=== PATIENT | female | born 1955 | race Caucasian/White ===

== ENCOUNTER 2018-10-14 05:38 | Inpatient (IN) | payer OTHER ==
[~2018-10-14] VITALS: Ht 157.5 cm; Wt 83.9 kg
[2018-10-14] VITALS (13 sets, daily range): BP systolic 94–129; BP diastolic 50–75
[~2018-10-14 05:38] MED LIST: NKM
[2018-10-14] MEDS ORDERED: Propofol 1,000mg/ 100ml btl IV ONE ×2 (07:00)
[2018-10-14] MEDS ORDERED: fentaNYL 100 mcg/2 mL IV ONE ×2 (07:01→08:28)
[2018-10-14] MEDS ORDERED: Midazolam 2mg/2ml Inj ONE (07:01)
[2018-10-14] MEDS ORDERED: Lidocaine 1% MPF 10mg/ml 5ml ONE (07:03)
[2018-10-14] MEDS ORDERED: Succinylcholine 20mg/ml 10ml vial ONE (07:07)
[2018-10-14] MEDS ORDERED: Zemuron 50mg/5ml Inj IV ONE ×2 (07:07→10:09)
[2018-10-14] MEDS ORDERED: Bupivacaine w/Epi 0.5% 30ml Vial INJ ONE (07:08)
[2018-10-14] MEDS ORDERED: Thrombin 5000 units TOPIC ONE ×4 (07:08→09:47)
[2018-10-14] MEDS ORDERED: Gelfoam Size TOPIC ONE (07:08)
[2018-10-14] MEDS ORDERED: Bacitracin 50000 Units Vial ONE (07:09)
[2018-10-14] MEDS ORDERED: Heparin 5000 units/ml inj ONE (07:24)
--- NOTE | 2018-10-14 07:27 | Pre-Procedure Note/Attestation ---
Pre-Procedure Note/Attestation Complete Prior to Procedure Planned Procedure: not applicable Procedure Narrative: L4-5, L3-4 ALIF and possible post instrumentation Indications for Procedure Pre-Operative Diagnosis: L4-5 antlsth, L3-4 collapse Attestation I attest that I discussed the nature of the procedure; its benefits; risks and complications; and alternatives (and the risks and benefits of such alternatives ), prior to the procedure, with the patient (or the patient's legal mechanical service representative). I attest that, if there was a reasonable possibility of needing a blood transfusion, the patient (or the patient's legal mechanical service representative) was given the [facility] standardized written summary, pursuant to the Hiram Erika Blood Safety Act ([place] Health and Safety Code # 1645, as amended). I attest that I re-evaluated the patient just prior to the surgery and that there has been no change in the patient's H&P, except as documented below: GRADY LILLY Oct 14, 2018 07:27
[2018-10-14] MEDS ORDERED: Sterile Water For Irrig 2000ml IRRIG ONE (07:30)
[2018-10-14] MEDS ORDERED: LR 1000ml ONE (07:30)
[2018-10-14] MEDS ORDERED: NS Irrig 1000ml ONE (07:30)
[2018-10-14] MEDS ORDERED: Phenylephrine 10mg/ml Vial ONE (08:50)
[2018-10-14] MEDS ORDERED: NS Irrig 1000ml IRRIG ONE (09:04)
--- NOTE | 2018-10-14 09:22 | Anethesia Preoperative Eval ---
Anesthesia Pre-op PMH/ROS General Date of Evaluation: Oct 14, 2018 Time of Evaluation: 07:20 Anesthesiologist: Luis Antonio ASA Score: ASA 2 Mallampati Score Class I : Soft palate, uvula, fauces, pillars visible Class II: Soft palate, uvula, fauces visible Class III: Soft palate, base of uvula visible Class IV: Only hard plate visible Mallampati Classification: Class II Surgeon: Saad Diagnosis: Lumbar radiculopathy Surgical Procedure: ALIFT L3-L4-L5 Posterior percutaneous interbody fusion Anesthesia History: none Family History: no anesthesia problems Allergies: Coded Allergies: SULFA (SULFONAMIDE ANTIBIOTICS) (Verified Allergy, Severe, 10/13/18) hives GLUTEN (Verified Adverse Reaction, Intermediate, 10/14/18) bloating, stomach ache Patient NPO?: Yes NPO Date: Oct 13, 2018 NPO Time: 1999 Past Medical History Cardiovascular: Denies: HTN, CAD, IA, valve dz, arrhythmia, other Pulmonary: Denies: asthma, COPD, COBY, other Gastrointestinal/Genitourinary: Reports: GERD Neurologic/Psychiatric: Reports: depression/anxiety, other - chronic pain; Denies: dementia, CVA, TIA Endocrine: Denies: DM, hypothyroidism, steroids, other HEENT: Denies: cataract (L), cataract (R), glaucoma, [place] (L), [place] (R), other Hematology/Immune: Denies: anemia, DVT, bleeding disorder, other Musculoskeletal/Integumentary: Denies: OA, RA, DJD, DDD, edema, other Other: obesity PMH Narrative: as above PSxH Narrative: Salpingectomy for ectopic , neck gygroma ORIF knee Anesthesia Pre-op Phys. Exam Physician Exam Last Vital Signs Date Time Temp Pulse Resp B/P (MAP) Pulse Ox O2 Delivery O2 Flow Rate FiO2 10/14/18 06:22 Room Air 10/14/18 06:22 98.7 78 18 122/75 (91) 97 Constitutional: NAD Neurologic: CN 2-12 intact Cardiovascular: RRR, no M/R/G Respiratory: CTA Gastrointestinal: other - obesity Airway Exam Mallampati Score: Class II MO: limited Neck: short ROM: limited Teeth: intact Dentures: no upper, no lower Anesthesia Pre-op A/P Labs see chart Studies Pre-op Studies: EKG - NSR, echo - EF 60% Risk Assessment & Plan Assessment: ASA 2 Plan: GA with ETT neuromonitoring Status Change Before Surgery: No Pre-Antibiotics Drug: Ancef 1gr. Given Within 1 Hr of Incision: Yes Time Given: 08:20 Darrell Salmon MD Oct 14, 2018 09:22
[2018-10-14] MEDS ORDERED: Morphine Sulfate 10mg/ml Inj ONE (10:53)
[2018-10-14] MEDS ORDERED: Glycopyrrolate 0.2mg/ml 1ml Vial ONE (10:54)
[2018-10-14] MEDS ORDERED: Neostigmine 1mg/ml 10ml Inj ONE (10:54)
[2018-10-14] MEDS ORDERED: LR 1000ml 1,000 ML IVLG SCH (11:04)
[2018-10-14] MEDS ORDERED: DiphenhydrAMINE 50mg/ml Inj IVP PRN (11:15)
[2018-10-14] MEDS ORDERED: Hydromorphone 0.5mg/0.5ml inj IVP PRN (11:15)
[2018-10-14] MEDS ORDERED: Ketorolac 30mg Inj IV PRN (11:15)
[2018-10-14] MEDS ORDERED: Midazolam 2mg/2ml Inj IVP PRN (11:15)
[2018-10-14] MEDS ORDERED: Meperidine 50mg/ml Inj(FOR RIGORS ONLY) IV PRN (11:15)
--- NOTE | 2018-10-14 11:54 | Immediate Post-Op Evaluation ---
Immediate Post-Op Evalulation Immediate Post-Op Evalulation Procedure: ALIF L3-L4-L5 Date of Evaluation: Oct 14, 2018 Time of Evaluation: 11:53 IV Fluids: 1200 Blood Products: Albumin 250 Estimated Blood Loss: 100 Urinary Output: 150 Blood Pressure Systolic: 108 Blood Pressure Diastolic: 62 Pulse Rate: 76 Respiratory Rate: 20 O2 Sat by Pulse Oximetry: 99 Temperature (Fahrenheit): 97.7 Pain Score (1-10): 2 Nausea: No Vomiting: No Complications none Patient Status: reacts, patent, extubated, none Hydration Status: adequate Darrell Salmon MD Oct 14, 2018 11:54
--- NOTE | 2018-10-14 12:00 | Brief Operative Note ---
Immediate Post Operative Note Operative Note Chief Complaint: low back pain Pre-op Diagnosis: L4-5 antlsth, L3-4 collapse Procedure: L3-4-5 ALIF Post-op Diagnosis: same as pre-op Findings: consistent w/pre-op dx studies Surgeon: Shawna Nash Edgerman: Oneida Rico Additional Surgeons: Denisse Starks Anesthesiologist: Jodi Salmon Anesthesia: general Specimen: none Complications: none Condition: stable Fluids: See anesth Estimated Blood Loss: minimal Drains: none Implant(s) used?: Yes - GRADY Dean Oct 14, 2018 12:00
[2018-10-14] MEDS ORDERED: Acetaminophen (Non formulary) 100 ML IV SCH (12:15)
--- NOTE | 2018-10-14 13:00 | NUR ---
NURSE NOTES: Received patient from Elise PHYSIOTHERAPY ASSISTANT. Patient a/o x4 lying on the bed. No respiratory discomfort noted. Denies pain at this time. Surgical site is dry and intact. Calixto catheter is patent and yellowish. Bed in lowest position, call light within reach. Will continue to monitor.
--- NOTE | 2018-10-14 14:04 | Diagnostic Imaging Report ---
INDICATION: Pain, intraoperative TECHNIQUE: Intraoperative imaging Fluoroscopy time: 30.4 seconds Total dose: 0.35233 mGym2 Total number of images: 4 COMPARISON: None FINDINGS: Intraoperative images demonstrate surgical tool projected at the anterior aspect of what is presumably the L3-4 disc. Subsequent images demonstrate placement of anterior fusion hardware and disc spacers bridging L3-4 and L4-5. IMPRESSION: Intraoperative imaging, as described
[2018-10-14] MEDS ORDERED: HYDROmorphone 1mg/ml Carpuject SUBQ SCH (14:30)
[2018-10-14] MEDS ORDERED: Artificial Tears 1.4% Op Soln LEFT EYE PRN ×3 (14:56→19:22)
[2018-10-14] MEDS ORDERED: LORazepam 0.5mg tab ORAL PRN ×2 (15:15→15:21)
[2018-10-14] MEDS ORDERED: Chloraseptic Spray 20mL Bottle ORAL PRN (15:15)
[2018-10-14] MEDS ORDERED: Artificial Tears 1.4% Op Soln LEFT EYE ONE (15:20)
--- NOTE | 2018-10-14 16:00 | NUR ---
NURSE NOTES: Patient stated he son lives in [place] and a friend is her NOK name Aleida Matthews tel # [phone] also patient verbalized Mrs Shin can receive medical information if she called. CN verified
[2018-10-14] MEDS: Dronabinol 2.5mg Cap ORAL SCH ×2 (16:04→23:59)
[2018-10-14] MEDS: ceFAZolin sod 1 GM in D5W 55 ML IV SCH ×2 (16:05→23:59)
[2018-10-14] MEDS ORDERED: Artificial Tears 1.4% Op Soln LEFT EYE SCH (16:30)
[2018-10-14] MEDS: HYDROmorphone 1mg/ml Carpuject SUBQ PRN ×2 (18:13→21:55)
[2018-10-14] MEDS ORDERED: HYDROmorphone 1mg/ml Carpuject SUBQ PRN (19:30)
--- NOTE | 2018-10-14 19:45 | NUR ---
HAND-OFF: Report given to Bandar Love RN.
--- NOTE | 2018-10-14 20:00 | Operative Note - Dictated ---
DATE OF OPERATION: 10/14/2018 PREOPERATIVE DIAGNOSES: 1. Disc disease L3-L4. 2. Disc disease L4-L5. POSTOPERATIVE DIAGNOSES: 1. Disc disease L3-L4. 2. Disc disease L4-L5. PROCEDURE: 1. Anterior retrograde exposure, interbody fusion at L3-L4. 2. Anterior retrograde exposure, interbody fusion at L4-L5. 3. Ligation of left iliolumbar vein. 4. Mobilization of the aorta and vena cava to the right. SURGEON: Malik Starks M.D. CO-SURGEON: Carolina Nash M.D. for procedures #1 and #2. MANAGER OUTREACH: Carolina Nash M.D. for procedures #3 and #4. ANESTHESIA: General. EBL: 100 mL. OPERATIVE NOTE: Risks, benefits, complications, and alternatives were carefully discussed with the patient. Consent obtained. Risks and benefits have been explained to the patient included, but not limited to bleeding, infection, damage to lungs, damage to ureter, wound infection, wound dehiscence, DVT, PE, loss of limb, loss of life, and high-risk nature of the operation were fully explained and stressed to the patient. All questions answered. OPERATIVE TECHNIQUE: The patient was placed in supine position, and prepped and draped in usual sterile fashion. Time-out was called. Antibiotics were given. I made a 10 cm incision left paramedian longitudinally. Incision was taken down to the subcutaneous tissue, which was then opened using electrocautery. Left anterior rectus sheath was opened in the direction of the wound. The posterior rectus sheath was incised superiorly about 2 cm. Bookwalter retractor was placed retracting the bowel contents to the right and left rectus muscle to the left. I dissected the left common iliac artery and vein and external iliac artery and vein. I ligated the segmental vessels on the left side at the level of L4-L5. Next, I dissected the left iliolumbar vein, which was ligated using titanium clips and 2-0 silk suture. Mobilization of the aorta and vena cava was started from the left to right. Using a peanut dissector and my index finger this was done very gently, in order not to damage the blood vessels. Exposure for L3-L4 and L4-L5 was obtained by retracting the left common iliac artery and vein, vena cava, and aorta to the right calf. We then proceeded with the diskectomy and placement of a new cage after all the x-rays were satisfactory read by Saad Royal. Needle count and sponge count was correct. The wound was irrigated using antibiotic solution. Anterior rectus sheath was closed using a #1 Vicryl suture in running fashion with interrupted sutures in the middle. The wound was irrigated and closed in 2 layers of 2-0 Vicryl suture for subcutaneous, 4-0 Monocryl suture for running subcutaneous and skin closure with Steri-Strips. The patient tolerated the procedure well. Malik Starks MD DR: JAYDON JOB#: [id number] CC:
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
[2018-10-15] VITALS: BP 134/75
[2018-10-15] MEDS: HYDROmorphone 1mg/ml Carpuject SUBQ PRN ×4 (01:27→20:27)
--- NOTE | 2018-10-15 01:27 | NUR ---
NURSE NOTES: Pt c/o burning sensation to her right thigh with radiation to the lower extremity. Pt pain level 10/10. Dilaudid 1mg sub cut. given. Pt states that she was promised by the anesthesiologist she will have a FLIGHT NURSE order. Paged Dr. Dinero and Dr. Nash. Awaiting for call back.
[2018-10-15 04:00] VITALS: BP 124/69
--- NOTE | 2018-10-15 04:15 | NUR ---
NURSE NOTES: Dr. Dinero called back no new orders given.
--- NOTE | 2018-10-15 07:31 | NUR ---
HAND-OFF: Report given to TOMASA Ha. Pt in stable condition.
--- NOTE | 2018-10-15 07:46 | NUR ---
NURSE NOTES: Received report from TOMASA Portillo. Pt in bed, awake, talkative, no complaints of pain at this time, A/O x4, no apparent distress noted. Bed in lowest position, call light within reach
[2018-10-15] MEDS: Dronabinol 2.5mg Cap ORAL SCH ×3 (07:54→23:52)
[2018-10-15] MEDS: ceFAZolin sod 1 GM in D5W 55 ML IV SCH (07:54)
[2018-10-15 08:00] VITALS: BP 139/74
--- NOTE | 2018-10-15 08:34 | 48 Hour Post Anesthesia Eval ---
Post Anesthesia Evaluation Procedure: ALIF L3-L4-L5 Date of Evaluation: Oct 15, 2018 Time of Evaluation: 08:30 Blood Pressure Systolic: 132 0: 64 Pulse Rate: 72 Respiratory Rate: 22 Temperature (Fahrenheit): 97.6 O2 Sat by Pulse Oximetry: 98 Airway: patent Nausea: No Vomiting: No Pain Intensity: 4 - bilatereal upper legs R>L motor and sensation intact Hydration Status: adequate Cardiopulmonary Status: stable Mental Status/LOC: patient returned to baseline Follow-up Care/Observations: n/a Post-Anesthesia Complications: none Follow-up care needed: N/A Darrell Salmon MD Oct 15, 2018 08:34
[2018-10-15] MEDS: LORazepam 0.5mg tab ORAL PRN ×3 (09:14→21:54)
--- NOTE | 2018-10-15 09:45 | NUR ---
PT EVALUATION NOTE: Patient seen for initial PT evaluation, see complete evaluation for details. Patient presents with impaired functional mobility due to pain s/p lumbar surgery. Patient will benefit from skilled inpatient PT intervention to address strength, balance, safety and functional mobility. Recommend short term SNF for rehab vs home with home PT and caregiver assistance once cleared by MD. Recommend FWW and raised toilet seat for home use.
--- NOTE | 2018-10-15 10:19 | NUR ---
HAND-OFF: Report given to TOMASA Ibrahim.
--- NOTE | 2018-10-15 10:20 | NUR ---
NURSE NOTES: Received report from TOMASA Ha. Rounding done. Patient a/o x4 lying on the bed. No respiratory discomfort noted. c/o pain on right thigh 02/08. Will be given pain medicine as MD ordered. Bed in lowest position, call light within reach. Will continue to monitor.
[2018-10-15 12:00] VITALS: BP 142/67
[2018-10-15] MEDS: HYDROcodone/Acetamin 10/325 tab ORAL PRN ×2 (12:09→16:48)
--- NOTE | 2018-10-15 14:45 | Progress Note ---
DATE: 10/15/2018 ACUTE PAIN MANAGEMENT PHYSICIAN PROGRESS NOTE: LABORATORY STUDIES: No interval laboratory studies. MEDICATIONS: Medication administration record reviewed. Medications include IV fluids, Pepcid, Ancef, Marinol 2.5 mg every 8 hours. PRN medications include Fioricet, Benadryl, [place], Chloraseptic spray, Phenergan, Mylanta, Ativan, Zofran, Artificial Tears, subcutaneous Dilaudid. I spent over sixty minutes in consultation today. I discussed the case with the surgeon, Dr. Nash and the overnight nurse RN, Bandar. The patient's left eye complaints have resolved. Her left eye acuity has always been at her baseline, and the redness and irritation have resolved completely per the patient, and through observation. The patient has been receiving every 8 hours dosing of Marinol for baseline analgesia. Nevertheless, the patient still has been demonstrating excessive anxiety. She has received oral doses of Ativan 0.5 mg, which I have ordered every 6 hours p.r.n. She just received a dose 3 hours ago, but still shows significant anxiety. I will increase the frequency to every 4 hours p.r.n., which I would recommend to alternate between the breakthrough doses of subcutaneous Dilaudid and her scheduled Marinol, which I will continue as ordered. Subcutaneous Dilaudid dosing has been given at 1 mg subcutaneously. The patient has not yet passed positive flatus after ALIF procedure, so I would keep her NPO except for medications at this time and she will remain on IV fluids for hydration. Hopefully, with physical therapy training, the patient will show some improvement and return of bowel function, so we can advance her diet. Once diet is advanced, I would recommend also using the oral hydrocodone pills, which I did leave a written prescription for outpatient usage. The patient is moving all extremities x4. We will assess a better neurologic examination after physical therapy training later today. The patient's Calixto catheter remains in place. Incentive spirometer has been at the bedside although the patient has been noncompliant. I have encouraged her to use. I will clarify SCD orders with the surgeon, who had not recommended sequential compression pneumatic devices for DVT prophylaxis. Hopefully, ambulation will suffice for DVT prophylaxis in this mildly obese woman. If there is any headache complaint, Fioricet remains available as well. Darvin Dinero M.D. DR: UMER JOB#: [id number] CC:
[2018-10-15 16:00] VITALS: BP 124/62
--- NOTE | 2018-10-15 19:26 | NUR ---
HAND-OFF: Report given to Bandar Love RN.
--- NOTE | 2018-10-15 19:40 | NUR ---
NURSE NOTES: Received report from TOMASA Ibrahim. Received pt in bed, asleep, no distress noted. IV fluid infusing as ordered. Bed in lowest position and locked, side rails up x 2, call light within reach. Will continue to monitor.
[2018-10-15 20:00] VITALS: BP 106/65
--- NOTE | 2018-10-15 20:25 | NUR ---
CASE MANAGEMENT: INITIAL REVIEW 63 YO F PRESENTED TPO OUR ED FROM HOME CC: BACK PAIN PMHx: BACK PAIN SI:ARTHROLITHIASIS. T 98.7 HR 78 RR 18 B/P 122/75 SATS 97% ON RA NO LABS TODAY IS: OR MEDS PATIENT ADMITTED TO MED/SURG 10/14/2018 @ 1200 DCP: PATIENT TO BE DISCHARGED TO HOME ONCE MEDICALLY CLEARED. PLAN OF CARE: DATE OF OPERATION: 10/14/2018 PREOPERATIVE DIAGNOSES: 1. Disc disease L3-L4. 2. Disc disease L4-L5. POSTOPERATIVE DIAGNOSES: 1. Disc disease L3-L4. 2. Disc disease L4-L5. PROCEDURE: 1. Anterior retrograde exposure, interbody fusion at L3-L4. 2. Anterior retrograde exposure, interbody fusion at L4-L5. 3. Ligation of left iliolumbar vein. 4. Mobilization of the aorta and vena cava to the right.
[2018-10-16] VITALS: BP 133/61
[2018-10-16] MEDS: HYDROmorphone 1mg/ml Carpuject SUBQ PRN ×4 (01:01→15:21)
[2018-10-16] MEDS: LORazepam 0.5mg tab ORAL PRN ×3 (02:13→12:09)
[2018-10-16 05:36] VITALS: BP 111/68
[2018-10-16] MEDS: HYDROcodone/Acetamin 10/325 tab ORAL PRN (05:38)
--- NOTE | 2018-10-16 05:38 | NUR ---
NURSE NOTES: Pt temp. 101.0. Tylenol 650mg PO given with sips of water. No distress noted. Will continue to monitor.
--- NOTE | 2018-10-16 06:00 | NUR ---
NURSE NOTES: Re-check temp. 100.0. Encourage pt to use IS while awake. Pt verbalized understanding. No distress noted.
--- NOTE | 2018-10-16 07:30 | NUR ---
HAND-OFF: Report given to TOMASA [place]. Pt in stable condition.
[2018-10-16 08:00] VITALS: BP 132/64
--- NOTE | 2018-10-16 08:15 | NUR ---
NURSE NOTES: received patient on bed, awake. IV site intact and patent. Bed in low and locked position, call light within reach. No signs of respiratory distress. Room board updated, will continue to monitor.
[2018-10-16] MEDS: Dronabinol 2.5mg Cap ORAL SCH (08:56)
[2018-10-16 12:00] VITALS: BP 151/72
--- NOTE | 2018-10-16 12:10 | NUR ---
NURSE NOTES: Aclixto catheter was removed.
--- NOTE | 2018-10-16 12:30 | NUR ---
NURSE NOTES: Patient voided 55mL.
[2018-10-16 16:00] VITALS: BP 115/59
--- NOTE | 2018-10-16 17:00 | Progress Note ---
DATE: 10/16/2018 ACUTE PAIN MANAGEMENT PHYSICIAN PROGRESS NOTE MEDICATIONS: Medications administration record reviewed. Medications include IV fluids, Pepcid, Marinol, Fioricet. As needed medications include Benadryl, Chloraseptic spray, Phenergan, Mylanta, Zofran, artificial Tears, Dilaudid, Ativan, Clinton. LABORATORY STUDIES: No interval laboratory studies. VITAL SIGNS: T-max 101.0 earlier this morning, currently 99.1. Pulse 104, respirations 19, blood pressure 132/64, oxygen saturation 96%. I spent over 60 minutes in consultation today. I saw the patient at bedside with the physical therapist and discussed the case with the charge nurse, RN, Iza and the surgeon, Dr. Nash. The patient did sit at the side of the bed and did stand, walking a few steps with physical therapy this morning. The patient still has extreme anxiety which the surgeon confirmed is the patient's baseline preoperatively. We will continue using every four hours dosing of Ativan for anxiolysis. Additionally she continue to tolerate the scheduled Marinol which I will continue every 8 hours. We also need breakthrough doses of Clinton with subcutaneous Dilaudid for analgesia. The patient still has not yet passed any flatus. She will remain NPO for now. She does not have any nausea symptoms but states that she does not have much of an appetite either. As she is passing flatus, we will start her on clear liquids. She will continue with sequential compression pneumatic devices in place for DVT prophylaxis per the surgeon's orders. Incentive spirometer has been ordered, the patient has been relatively noncompliant and I have encouraged her to be more aggressive to avoid postoperative atelectasis. I did speak with the patient's outpatient [facility] pharmacy to confirm the Clinton prescription which the patient's friend dropped off for me at the [facility] pharmacy several days ago. Hopefully there will be no problem with the pharmacy to dispense her medications for outpatient usage. We will continue supportive care and await for flatus as we await further advancement of physical therapy. Darvin Dinero M.D. DR: Minnie JOB#: [id number] CC:
[2018-10-16] MEDS ORDERED: LORazepam 0.5mg tab ORAL PRN (17:15)
[2018-10-16 18:01] LABS: BASOPHILS % (AUTO) 1.1 % (0.0-2.0); EOSINOPHILS % (AUTO) 0.2 % (0.0-3.0); HEMATOCRIT 34.4 % (37.0-47.0); HEMOGLOBIN 11.6 G/DL (12.0-16.0); MEAN CORPUSCULAR VOLUME 91 FL (80-99); MONOCYTES % (AUTO) 8.6 % (1.0-10.0); NEUTROPHILS % (AUTO) 80.2 % (45.0-75.0); PLATELET COUNT 262 K/UL (150-450); RED BLOOD COUNT 3.77 M/UL (4.20-5.40); RED CELL DISTRIBUTION WIDTH 11.7 % (11.6-14.8); WHITE BLOOD COUNT 11.7 K/UL (4.8-10.8)
[2018-10-16 18:05] LABS: ANION GAP 5 mmol/L (5-15); BLOOD UREA NITROGEN 4 mg/dL (7-18); CALCIUM 7.9 MG/DL (8.5-10.1); CARBON DIOXIDE 26 MMOL/L (21-32); CHLORIDE 108 MMOL/L (98-107); CREATININE 0.8 MG/DL (0.55-1.30); POTASSIUM 3.9 MMOL/L (3.5-5.1); SODIUM 139 MMOL/L (136-145)
[2018-10-16] MEDS: Hydromorphone 0.5mg/0.5ml inj SUBQ PRN ×2 (18:54→22:42)
--- NOTE | 2018-10-16 19:50 | NUR ---
NURSE NOTES: Received report from Darvin RANDOLPH.
--- NOTE | 2018-10-16 19:54 | NUR ---
HAND-OFF: Report given to RN Cleyamileth.
--- NOTE | 2018-10-16 20:24 | NUR ---
HAND-OFF: Report given to TOMASA Paiz.
[2018-10-17] VITALS: BP 132/67
[2018-10-17] MEDS: Hydromorphone 0.5mg/0.5ml inj SUBQ PRN (02:18)
[2018-10-17 04:00] VITALS: BP 120/57
[2018-10-17] MEDS: HYDROcodone/Acetamin 10/325 tab ORAL PRN ×2 (05:47→12:54)
--- NOTE | 2018-10-17 06:50 | NUR ---
TEMP 100.1F NOTIFIED.
--- NOTE | 2018-10-17 07:30 | NUR ---
HAND-OFF: Report given to JOELLE RANDOLPH.
--- NOTE | 2018-10-17 08:00 | NUR ---
NURSE NOTES: Received pt from Buddy Nova RN, pt was eating without distress, call light w/in reach.
[2018-10-17] MEDS: Docusate 100mg/10ml Liq ORAL SCH ×2 (08:27→18:37)
[2018-10-17] MEDS: Sennosides 8.6mg tab ORAL SCH ×2 (08:28→18:37)
[2018-10-17] MEDS ORDERED: Dronabinol 2.5mg Cap ORAL SCH (09:00)
--- NOTE | 2018-10-17 09:45 | Progress Note ---
DATE: 10/17/2018 ACUTE PAIN MANAGEMENT PHYSICIAN PROGRESS NOTE OBJECTIVE: VITAL SIGNS: Shows current temperature, which is the T-max of 100.1, pulse 100, respirations 18, blood pressure 120/57, and oxygen saturation 98% on room air. LABORATORY STUDIES: From yesterday evening shows a white count of 11.7, hematocrit 34, platelets 262. Sodium 139, potassium 3.9, chloride 108, bicarb 26, BUN 4, creatinine 0.8, glucose 101, and calcium 7.9. MEDICATIONS: Medication administration record reviewed. Medications include IV fluids, Pepcid, Marinol, Fioricet, Benadryl, Chloraseptic spray, Phenergan, Mylanta, Zofran, Artificial Tears, Milton, Dilaudid, and Ativan. I spent over 60 minutes in consultation over the past 24 hours with multiple discussions with the nursing teams and the surgeon, Dr. Nash. Yesterday evening, the patient seemed to be somewhat confused. We checked stat laboratory studies, which showed the reading within normal limits. It seems the patient was just a little confused and sedated from the many narcotic analgesics in-use. I held the Marinol dosing and decreased the dosing to q.12 hours, which I will resume this morning. When I saw the patient this morning, she is completely coherent with no signs of confusion. She has been able to sleep at-times. She has been slowly increasing her ambulation by standing and walking to the bedside commode to urinate. She states that she has been passing flatus so we will advance her diet starting with clear liquids this morning. Now that she is passing flatus, I will add Colace and Senokot b.i.d. to help with bowel regularity and I will decrease her IV fluids to 75 mL an hour. Her current narcotic analgesic regimen will remain intact, although I have decreased the dosing somewhat. She will continue with the Ativan 0.5 mg orally p.r.n. for anxiety or spasm, but I have decreased the frequency every four hours to every six hours. I have decreased the breakthrough Dilaudid injection dosing from 1 mg to 0.5 mg, but we will continue the subcutaneous route at a frequency of every three hours p.r.n. for severe breakthrough pain. The patient also has been tolerating the oral Milton, which I will continue at 10 mg q.3 hours p.r.n. I did speak with the patient's outpatient [facility] pharmacist to verify the prescription for the outpatient Milton, which I prescribed earlier in the week. We will continue advancing the patient's ambulation. Her low-grade fever certainly are contributed by her non-compliance with incentive spirometer and her poor ambulation. I encouraged her to ambulate more frequently in greater distances; along with increasing her incentive spirometer usage to avoid postoperative atelectasis. Darvin Dinero M.D. DR: RADHA JOB#: [id number] CC:
--- NOTE | 2018-10-17 10:00 | NUR ---
PT Note RN advised to hold PT in AM and to let patient sleep. In PM, patient has order for venous duplex scan to r/o DVT. Scan has not been done yet. Will wait for results of the duplex scan prior to giving PT tx.
[2018-10-17 12:00] VITALS: BP 108/63
--- NOTE | 2018-10-17 14:05 | NUR ---
CASE MANAGEMENT: REVIEW 10/17/2018 SI:ARTHROLITHIASIS. T 100.1 HR 100 RR 18 B/P 120/57 SATS 98% ON RA NO LABS TODAY IS: IVF @ 75 mL/HR PEPCID PO BID MARINOL PO Q12H MED/SURG STATUS DCP: PATIENT TO BE DISCHARGED TO HOME ONCE MEDICALLY CLEARED. PLAN OF CARE: VENOUS DUPLEX POST OP CARE
[2018-10-17 16:00] VITALS: BP 134/72
--- NOTE | 2018-10-17 19:04 | Diagnostic Imaging Report ---
EXAM: US Duplex Bilateral Lower Extremity Veins CLINICAL HISTORY: PAIN TECHNIQUE: Real-time duplex ultrasound scan of the bilateral lower extremity veins integrating B-mode two-dimensional vascular structure, Doppler spectral analysis, color flow Doppler imaging and compression. COMPARISON: No relevant prior studies available. FINDINGS: Right deep veins: Unremarkable. No DVT in the right common femoral, femoral, proximal deep femoral or popliteal veins. The veins demonstrate normal color flow, are normally compressible, with normal phasic flow and/or augmentation response. Right superficial veins: Unremarkable. No thrombus in the visualized right great saphenous vein. Left deep veins: Unremarkable. No DVT in the left common femoral, femoral, proximal deep femoral or popliteal veins. The veins demonstrate normal color flow, are normally compressible, with normal phasic flow and/or augmentation response. Left superficial veins: Unremarkable. No thrombus in the visualized left great saphenous vein. Soft tissues: No acute findings. No popliteal cyst. IMPRESSION: Normal bilateral lower extremity duplex venous ultrasound.
[2018-10-17 20:00] VITALS: BP 134/66
--- NOTE | 2018-10-17 20:02 | NUR ---
HAND-OFF: Report given to TOMASA Marcum. pt is stable condition.SCD is on.
--- NOTE | 2018-10-17 20:03 | NUR ---
NURSE NOTES: Report to DVT result
--- NOTE | 2018-10-17 22:41 | NUR ---
NURSE NOTES: Patient is aaox4. VSS, no shortness of breath. Pain 3/10 bilateral legs. Surgical site dressing clean, dry, intact. Ambulates with assistance. Refusing IV insertion at this time. Tolerating po fluids. Will continue to monitor, bed low, call light within reach.
[2018-10-18] VITALS: BP 121/75
[2018-10-18] MEDS: HYDROcodone/Acetamin 10/325 tab ORAL PRN ×2 (00:21→06:45)
[2018-10-18 04:00] VITALS: BP 119/69
--- NOTE | 2018-10-18 07:45 | NUR ---
HAND-OFF: Report given to TOMASA Muniz. Patient stable.
--- NOTE | 2018-10-18 07:47 | NUR ---
NURSE NOTES: Received patient in bed, awake, alert and oriented x4. Not in acute distress. Surgical site dressing intact without bleeding. No IV received. Bed is in lowest position and locked. Call light and personnel items within reach. Will continue plan of care.
[2018-10-18 08:00] VITALS: BP 123/69
[2018-10-18] MEDS ORDERED: NORCO 10-325 T1 EACH ORAL (08:05)
[2018-10-18] MEDS ORDERED: HYDROcodone/Acetamin 10/325 tab ORAL SCH (08:09)
--- NOTE | 2018-10-18 09:00 | NUR ---
NURSE NOTES: Received discharge order form Dr. Nash.
[2018-10-18] MEDS: Docusate 100mg/10ml Liq ORAL SCH (09:05)
[2018-10-18] MEDS: Sennosides 8.6mg tab ORAL SCH (09:05)
--- NOTE | 2018-10-18 10:45 | Progress Note ---
DATE: 10/18/2018 ACUTE PAIN MANAGEMENT PHYSICIAN PROGRESS NOTE LABORATORY STUDIES: No interval laboratory studies. Last hematocrit on October 16 was 34. Lower extremity Doppler study performed yesterday, October 17, 2018, shows negative for DVT. Normal bilateral lower extremity duplex venous ultrasound performed. MEDICATIONS: Medication administration record reviewed. Medications include Colace, Pepcid, Senokot. Medications p.r.n. include Fioricet, Benadryl, Phenergan, Mylanta, Zofran, Artificial Tears, Linden, Dilaudid, Ativan. I spent over 60 minutes in consultation today. I saw the patient at bedside after discussion with the overnight nurse, TOMASA Marcum, and the charge nurse, TOMASA Dykes. I also spoke with the surgeon, Dr. Nash. Lower extremity Doppler was performed yesterday as the patient was complaining of leg pain. This study was normal with no evidence for DVT. The patient has improved considerably over the past 24 hours and even in the past 12 hours. She is wide awake and her pain is well controlled using oral Linden pills primarily. She is tolerating advancing diet without any nausea problems. She is passing positive flatus and I instructed her to start Metamucil and prunes once she returns home. The patient already has access to the Linden pills from her outpatient pharmacy. I did leave a prescription several days ago and her friends drop-off the prescription at the local [facility]. The patient has been ambulating better. She shows no further signs of oversedation or confusion. She is afebrile and is much more compliant using her incentive spirometer. She already has a followup appointment scheduled with Dr. Nash in approximately 10 days. The patient feels comfortable with a discharge trial home at this time. A front-wheeled walker and raised toilet seat have been ordered to help her at her home and she does have good support at home with multiple friends to assist with activities of daily living. I agree with Dr. Nash at this time for a discharge trial home. Darvin Dinero M.D. DR: Rishi JOB#: [id number] CC:
--- NOTE | 2018-10-18 11:15 | NUR ---
NURSE NOTES: Patient discharged to home accompanied by her friend via private car in stable condition. Prior to discharge, patient's V/S stable. Patient was on mild pain. Surgical site intact, no bleeding or s/s of infection. No IV. ID was removed. Discharge instruction given to the patient. Patient was accepted by [facility] c/s Bing. Patient will fill her pain medication and pain meds given earlier per Dr. Dinero order. Skin assessment done, skin intact. Staff escorted patient. RN spoke to Bing from [facility]. Caregiver will be her home soon. RN checked the belongings and all belongings accounted for. Provided front wheel walker and elevated toilet seat. Discharge instruction given about pain med, dressing change , s/s of infection surgical site and when to seek medical attention.
[2018-10-18] MEDS ORDERED: HYDROcodone/Acetamin 10/325 tab ORAL PRN (11:30)
--- NOTE | 2018-10-18 19:00 | Discharge Summary ---
DATE OF ADMISSION: 10/14/2018 DATE OF DISCHARGE: 10/18/2018 ATTENDING PHYSICIAN AND SURGEON: Carolina Nash M.D. CONSULTING PHYSICIAN: Darvin Dinero M.D., Pain Management. ADMITTING DIAGNOSIS: L4-L5 anterolisthesis with L3-L4 lumbar spine collapse. POSTOPERATIVE DIAGNOSIS: L4-L5 anterolisthesis with L3-L4 lumbar spine collapse. HOSPITAL COURSE: The patient was admitted for elective lumbar spine fusion surgery on 10/14/2018, ALIF procedure. The patient underwent surgical procedure well and was transferred out of the operating room to the recovery room in stable condition. The patient did well in recovery and was transferred in stable condition to the orthopedic floor. A serial vital signs and diagnostic testing were performed. The patient advanced her ambulation and diet over several days. The patient advanced well with physical therapy and her pain was controlled at which point she was discharged to home in the care of her friend in stable condition. There were no complications. Darvin Dinero M.D. DR: MITCH JOB#: [id number] CC:
== END 2018-10-18 11:15 | disposition home health service (06) | DRG 460 ==
LOC: SDSOVERFLO 05:38 → 3E 13:15
PROC: 0ST20ZZ Resection of Lumbar Vertebral Disc, Open Approach (ICD-10-PCS; principal; 2018-10-14 07:30)
PROC: 3E0U0GB Introduction of Recombinant Bone Morphogenetic Protein into Joints, Open Approach (ICD-10-PCS; principal; 2018-10-14 07:30)
PROC: 0SG10A0 Fusion of 2 or more Lumbar Vertebral Joints with Interbody Fusion Device, Anterior Approach, Anterior Column, Open Approach (ICD-10-PCS; principal; 2018-10-14 07:30)
DX: M43.16 Spondylolisthesis, lumbar region (principal); M51.36 Other intervertebral disc degeneration, lumbar region; V89.2XXS Person injured in unspecified motor-vehicle accident, traffic, sequela; E66.9 Obesity, unspecified; F41.9 Anxiety disorder, unspecified; Z88.2 Allergy status to sulfonamides
CPT/HCPCS: 36415; 72020; 76000; 80048; 85025; 86850; 86900; 86901; 87081; 93970; 94003; 94150; J2250; J2370; J2710